=== PATIENT | female | born 1935 | race Caucasian/White ===

== ENCOUNTER → 2023-12-27 14:21 | Outpatient (REF) | payer OTHER, SELFPAY | LOC: RAD 14:21 | PROVIDERS: ATTENDING PHYSICIAN Student in an Organized Health Care Education/Training Program | DX: R05.1 Acute cough (principal) | CPT/HCPCS: 71046 ==

== ENCOUNTER → 2024-01-06 12:19 | Outpatient (REF) | payer OTHER, SELFPAY ==
[2024-01-06 13:25] LABS: ALT (SGPT) 18 U/L (0-35); AST (SGOT) 24 U/L (14-36); Albumin 3.7 g/dl (3.5-5.0); Alkaline Phosphatase 87 U/L (38-126); Blood Urea Nitrogen 16 mg/dl (7-17); Calcium 9.1 mg/dl (8.4-10.2); Carbon Dioxide 28 mmol/L (22-30); Chloride 106 mmol/L (98-107); Glucose 80 mg/dl (70-99); Potassium 4.3 mmol/L (3.5-5.1); Sodium 137 mmol/L (135-145); Total Bilirubin 0.9 mg/dl (0.2-1.3); Total Cholesterol 117 mg/dl (50-199); Total Protein 6.2 g/dl (6.3-8.2); Triglyceride 67 mg/dl (10-149); Very Low Density Lipoprotein 13 mg/dl (0-30); eGFR > 60.00
[2024-01-06 13:35] LABS: % Basophils 0.6 % (0-2); % Eosinophils 2.8 % (0-6); % Immature Granulocytes 0.3 % (0-0.5); % Lymphocytes 19.6 % (20.5-51.1); % Monocytes 11.2 % (1.7-9.3); % Neutrophils 65.5 % (42.2-75.2); Absolute Eosinophils 0.2 10^3/uL (0-0.7); Absolute Lymphocytes 1.4 10^3/uL (1.2-3.4); Absolute Monocytes 0.8 10^3/uL (0.1-0.6); Absolute Neutrophils 4.7 10^3/uL (1.4-6.5); Hematocrit 37.9 % (37.0-47.0); Hemoglobin 12.8 g/dL (12.0-16.0); Mean Corp Hgb Conc. 33.8 g/dL (33.0-37.0); Mean Corpuscular Hgb 32.3 pg (27.0-31.0); Mean Corpuscular Volume 95.7 fL (81.0-99.0); Mean Platelet Volume 10.7 fL (7.4-10.4); Nucleated Red Blood Cells % 0 %; Platelet Count 223 10^3/uL (130-400); Red Blood Cell Count 3.96 10^6/uL (4.20-5.40); Red Cell Dist. Width 13.5 % (11.5-14.5); White Blood Cell Count 7.1 10^3/uL (4.8-10.8)
[2024-01-06 14:04] LABS: HDL Cholesterol 45 mg/dl; LDL Cholesterol, Calculated 59 mg/dl
[2024-01-06 14:33] LABS: Glycohemoglobin (HgbA1c) 6.1 % (4.0-5.6)
[2024-01-06 14:43] LABS: Vitamin D, 25-OH*** 50.9 ng/mL (30-80)
[2024-01-06 14:56] LABS: TSH Reflex To Free T4 0.84 uIU/ml (0.47-4.68)
[2024-01-06 15:16] LABS: Vitamin B12 713 pg/ml (239-931)
== END ==
LOC: OLABMERCHI 12:19
PROVIDERS: ATTENDING PHYSICIAN Student in an Organized Health Care Education/Training Program
DX: Z86.73 Personal history of transient ischemic attack (TIA), and cerebral infarction without residual deficits (principal); R73.03 Prediabetes; M85.80 Other specified disorders of bone density and structure, unspecified site; F01.50 Vascular dementia, unspecified severity, without behavioral disturbance, psychotic disturbance, mood disturbance, and anxiety; I10 Essential (primary) hypertension; G62.9 Polyneuropathy, unspecified
CPT/HCPCS: 36415; 80053; 80061; 82306; 82607; 83036; 84443; 85025

== ENCOUNTER → 2024-06-29 10:40 | Outpatient (REF) | payer OTHER, SELFPAY ==
[2024-06-29 11:20] LABS: % Basophils 1.2 % (0-2); % Eosinophils 2.3 % (0-6); % Immature Granulocytes 0.2 % (0-0.5); % Lymphocytes 33.1 % (20.5-51.1); % Monocytes 8.8 % (1.7-9.3); % Neutrophils 54.4 % (42.2-75.2); Absolute Basophils 0.1 10^3/uL (0-0.2); Absolute Eosinophils 0.1 10^3/uL (0-0.7); Absolute Monocytes 0.5 10^3/uL (0.1-0.6); Absolute Neutrophils 3.3 10^3/uL (1.4-6.5); Hematocrit 36.5 % (37.0-47.0); Hemoglobin 12.7 g/dL (12.0-16.0); Mean Corp Hgb Conc. 34.8 g/dL (33.0-37.0); Mean Corpuscular Hgb 32.9 pg (27.0-31.0); Mean Corpuscular Volume 94.6 fL (81.0-99.0); Mean Platelet Volume 10.9 fL (7.4-10.4); Nucleated Red Blood Cells % 0 %; Platelet Count 195 10^3/uL (130-400); Red Blood Cell Count 3.86 10^6/uL (4.20-5.40); Red Cell Dist. Width 13.2 % (11.5-14.5)
[2024-06-29 11:38] LABS: ALT (SGPT) 21 U/L (0-35); AST (SGOT) 27 U/L (14-36); Albumin 3.7 g/dl (3.5-5.0); Alkaline Phosphatase 68 U/L (38-126); Blood Urea Nitrogen 20 mg/dl (7-17); Calcium 9.3 mg/dl (8.4-10.2); Carbon Dioxide 25 mmol/L (22-30); Chloride 109 mmol/L (98-107); Glucose 95 mg/dl (70-99); HDL Cholesterol 37 mg/dl; LDL Cholesterol, Calculated 78 mg/dl; Potassium 4.3 mmol/L (3.5-5.1); Sodium 143 mmol/L (135-145); Total Bilirubin 0.6 mg/dl (0.2-1.3); Total Cholesterol 133 mg/dl (50-199); Total Protein 6.2 g/dl (6.3-8.2); Triglyceride 91 mg/dl (10-149); Very Low Density Lipoprotein 18 mg/dl (0-30); eGFR 54.53
[2024-06-29 11:54] LABS: Free T4 0.88 ng/dl (0.78-2.19)
[2024-06-29 12:06] LABS: Glycohemoglobin (HgbA1c) 5.7 % (4.0-5.6)
[2024-06-29 12:08] LABS: TSH 2.21 uIU/ml (0.47-4.68)
[2024-06-29 12:44] LABS: Folate 15.6 ng/ml (2.76-20); Vitamin B12 993 pg/ml (239-931)
== END ==
LOC: OLABMERCHI 10:40
PROVIDERS: ATTENDING PHYSICIAN Family Medicine
DX: R73.03 Prediabetes (principal); Z86.73 Personal history of transient ischemic attack (TIA), and cerebral infarction without residual deficits; I10 Essential (primary) hypertension; G62.9 Polyneuropathy, unspecified; Z79.899 Other long term (current) drug therapy
CPT/HCPCS: 36415; 80053; 80061; 82607; 82746; 83036; 84439; 84443; 85025

== ENCOUNTER 2024-11-30 17:07 | Emergency (ER) | payer OTHER, SELFPAY ==
[2024-11-30 17:28] VITALS: BP 175/89
[2024-11-30 17:52] LABS: % Basophils 0.9 % (0-2); % Eosinophils 3.1 % (0-6); % Immature Granulocytes 0.1 % (0-0.5); % Lymphocytes 27.4 % (20.5-51.1); % Monocytes 9.4 % (1.7-9.3); % Neutrophils 59.1 % (42.2-75.2); Absolute Basophils 0.1 10^3/uL (0-0.2); Absolute Eosinophils 0.2 10^3/uL (0-0.7); Absolute Lymphocytes 1.9 10^3/uL (1.2-3.4); Absolute Monocytes 0.7 10^3/uL (0.1-0.6); Absolute Neutrophils 4.2 10^3/uL (1.4-6.5); Hematocrit 42.1 % (37.0-47.0); Hemoglobin 14.2 g/dL (12.0-16.0); Mean Corp Hgb Conc. 33.7 g/dL (33.0-37.0); Mean Corpuscular Hgb 32.2 pg (27.0-31.0); Mean Corpuscular Volume 95.5 fL (81.0-99.0); Mean Platelet Volume 10.1 fL (7.4-10.4); Nucleated Red Blood Cells % 0 %; Platelet Count 203 10^3/uL (130-400); Red Blood Cell Count 4.41 10^6/uL (4.20-5.40); Red Cell Dist. Width 13.4 % (11.5-14.5)
[2024-11-30 18:07] LABS: ALT (SGPT) 23 U/L (0-35); AST (SGOT) 30 U/L (14-36); Alkaline Phosphatase 95 U/L (38-126); Blood Urea Nitrogen 21 mg/dl (7-17); Calcium 9.8 mg/dl (8.4-10.2); Carbon Dioxide 27 mmol/L (22-30); Chloride 103 mmol/L (98-107); Glucose 101 mg/dl (70-99); Potassium 4.9 mmol/L (3.5-5.1); Sodium 141 mmol/L (135-145); Total Bilirubin 0.8 mg/dl (0.2-1.3); Total Protein 7.8 g/dl (6.3-8.2); eGFR > 60.00
[2024-11-30 18:18] LABS: Troponin I < 0.012 ng/ml
== END 2024-11-30 21:32 ==
LOC: EMR 17:07
PROVIDERS: Emergency Medicine; FAMILY PHYSICIAN Family Medicine
DX: R07.89 Other chest pain (principal); R00.0 Tachycardia, unspecified
CPT/HCPCS: 80053; 84484; 85025; 93005

== ENCOUNTER → 2024-12-21 10:02 | Outpatient (REF) | payer OTHER, SELFPAY ==
[2024-12-21 11:37] LABS: % Eosinophils 2.9 % (0-6); % Immature Granulocytes 0.2 % (0-0.5); % Lymphocytes 33.7 % (20.5-51.1); % Monocytes 8.9 % (1.7-9.3); % Neutrophils 53.3 % (42.2-75.2); Absolute Basophils 0.1 10^3/uL (0-0.2); Absolute Eosinophils 0.2 10^3/uL (0-0.7); Absolute Lymphocytes 2.1 10^3/uL (1.2-3.4); Absolute Monocytes 0.6 10^3/uL (0.1-0.6); Absolute Neutrophils 3.4 10^3/uL (1.4-6.5); Hematocrit 39.5 % (37.0-47.0); Hemoglobin 13.4 g/dL (12.0-16.0); Mean Corp Hgb Conc. 33.9 g/dL (33.0-37.0); Mean Corpuscular Hgb 32.4 pg (27.0-31.0); Mean Corpuscular Volume 95.6 fL (81.0-99.0); Mean Platelet Volume 10.7 fL (7.4-10.4); Nucleated Red Blood Cells % 0 %; Platelet Count 195 10^3/uL (130-400); Red Blood Cell Count 4.13 10^6/uL (4.20-5.40); Red Cell Dist. Width 13.4 % (11.5-14.5); White Blood Cell Count 6.3 10^3/uL (4.8-10.8)
[2024-12-21 11:52] LABS: ALT (SGPT) 17 U/L (0-35); AST (SGOT) 26 U/L (14-36); Albumin 3.9 g/dl (3.5-5.0); Alkaline Phosphatase 86 U/L (38-126); Blood Urea Nitrogen 21 mg/dl (7-17); Calcium 9.2 mg/dl (8.4-10.2); Carbon Dioxide 28 mmol/L (22-30); Chloride 108 mmol/L (98-107); Glucose 87 mg/dl (70-99); Potassium 4.3 mmol/L (3.5-5.1); Sodium 143 mmol/L (135-145); Total Bilirubin 0.9 mg/dl (0.2-1.3); Total Protein 6.5 g/dl (6.3-8.2); eGFR 54.19
[2024-12-21 12:06] LABS: Free T4 0.98 ng/dl (0.78-2.19); Vitamin D, 25-OH*** 49.4 ng/mL (30-80)
[2024-12-21 12:13] LABS: Glycohemoglobin (HgbA1c) 5.5 % (4.0-5.6)
[2024-12-21 12:19] LABS: TSH 2.28 uIU/ml (0.47-4.68)
[2024-12-21 12:55] LABS: Folate 17.3 ng/ml (2.76-20); Vitamin B12 > 1000 pg/ml (239-931)
== END ==
LOC: OLABMERCHI 10:02
PROVIDERS: ATTENDING PHYSICIAN Family Medicine
DX: I10 Essential (primary) hypertension (principal); Z86.73 Personal history of transient ischemic attack (TIA), and cerebral infarction without residual deficits; E11.9 Type 2 diabetes mellitus without complications; Z79.01 Long term (current) use of anticoagulants; G62.81 Critical illness polyneuropathy
CPT/HCPCS: 36415; 80053; 82306; 82607; 82746; 83036; 84439; 84443; 85025

== ENCOUNTER → 2025-01-04 11:34 | Outpatient (REF) | payer OTHER, SELFPAY ==
[2025-01-04 13:57] LABS: Folate 14.9 ng/ml (2.76-20); Vitamin B12 961 pg/ml (239-931)
== END ==
LOC: OLABMERCHI 11:34
PROVIDERS: ATTENDING PHYSICIAN Family Medicine
DX: R41.89 Other symptoms and signs involving cognitive functions and awareness (principal)
CPT/HCPCS: 36415; 82607; 82746

== ENCOUNTER 2025-07-04 14:16 | Emergency (ER) | payer OTHER, SELFPAY ==
[2025-07-04 14:21] VITALS: BP 184/79
[2025-07-04 14:47] LABS: Hematocrit 43.5 % (37.0-47.0); Hemoglobin 14.5 g/dL (12.0-16.0); Mean Corp Hgb Conc. 33.3 g/dL (33.0-37.0); Mean Corpuscular Volume 97.3 fL (81.0-99.0); Nucleated Red Blood Cells % 0 %; Platelet Count 204 10^3/uL (130-400); Red Cell Dist. Width 13.1 % (11.5-14.5)
[2025-07-04 15:08] LABS: ALT (SGPT) 21 U/L (0-35); AST (SGOT) 28 U/L (14-36); Albumin 4.5 g/dl (3.5-5.0); Alkaline Phosphatase 85 U/L (38-126); Blood Urea Nitrogen 17 mg/dl (7-17); Calcium 9.6 mg/dl (8.4-10.2); Carbon Dioxide 28 mmol/L (22-30); Chloride 105 mmol/L (98-107); Glucose 130 mg/dl (70-99); Potassium 4.5 mmol/L (3.5-5.1); Sodium 141 mmol/L (135-145); Total Protein 7.4 g/dl (6.3-8.2); eGFR > 60.00
[2025-07-04 16:02] VITALS: BP 190/70
[2025-07-04 17:20] VITALS: BP 167/115
[2025-07-04 17:26] LABS: Urine Character Clear (Clear)
[2025-07-04 17:39] LABS: Urine Squamous Cell 16-20 /LPF (Few)
[2025-07-04 17:40] LABS: Urine Red Blood Cell 0-2 /HPF (0-2)
--- NOTE | 2025-07-04 19:10 | ED.GENMED ---
History of Present Illness
General
Chief Complaint: Weakness
Time Seen by Provider: 07/04/25 16:06
History of Present Illness
History of Present Illness:
89-year-old female with history of prior CVA, hypertension, hyperlipidemia, dementia presenting to the emergency department for concern of change in mental status and weakness. Patient arrives from [facility]. Patient herself
denies any feelings of confusion. Reports that she told the staff that she felt dizzy this morning. Reports that the dizziness has resolved. Denies present chest pain, difficulty breathing, abdominal pain, weakness, numbness, urinary complaints.
Denies additional acute medical complaints
Past History
Past History
ED Past Medical History: Arrthythmia, CVA, GERD, HTN, Hypercholesterolemia, Psychiatric (Depression) and Other (AV malformation, UTI, PE, Constipation)
ED Past Surgical History: Gynecological (Hysterectomy)
Social History
Tobacco: Non-smoker
Alcohol: Occasional
Drug: None
Personal:
Living: alone ([facility])
Employment: Retired
Family History
Family History: Other (Noncontributory)
Phy Exam
Physical Exam
Physical Exam:
General: Well-appearing, no clinical signs of dehydration, nontoxic and in no acute distress
HEENT: protecting airway
Neck: appears supple
CV: Normal heart rate, regular rhythm
Resp: No accessory muscle use, no increased work of breathing, lungs clear to auscultation bilaterally
Abd: Soft and non-distended, no tenderness to palpation
Extremities: No deformities, no swelling
Neuro: alert, no focal neurologic deficit
: deferred
Rectal: deferred
Psych: Normal affect
Skin: Intact
Course
Orders/Labs/Results
Orders:
Orders
07/04/25 14:32
Complete Blood Count/With Diff Urgent
Comprehensive Metabolic Panel Urgent
07/04/25 17:08
Urinalysis Reflex To Culture Urgent
Date Specimen was Collected: 07/04/25
Time Specimen was Collected: 17:05
Urine Microscopic Reflex Cult Urgent
Urine Culture Urgent
ELLEN Source: U
Specimen Description:
Date Specimen was Collected: 07/04/25
Time Specimen was Collected: 17:05
07/04/25 17:35
CT Head W/o Iv Contrast Urgent
Comment:
Reason For Exam: dizziness
Abnormal Lab Results
07/04/25 07/04/25
14:32 17:08
MCH 32.4 H pg
(27.0-31.0)
Glucose 130 H mg/dl
(70-99)
Ur Occult Blood Reflex 1+ A
(Negative)
Leukocyte Esterase Rfl 2+ A
(Negative)
Urine Bacteria (Reflex) Few A
(Negative)
07/04/25 14:32
07/04/25 14:32
Vital Signs
Initial and Last Documented VS:
Initial Vital Signs
Temp Pulse Resp BP Pulse Ox
97.7 F 55 16 184/79 95
07/04/25 14:21 07/04/25 14:21 07/04/25 14:21 07/04/25 14:21 07/04/25 14:21
Last Documented Vital Signs
Temp Pulse Resp BP Pulse Ox
97.7 F 52 16 190/70 94
07/04/25 14:21 07/04/25 16:45 07/04/25 16:45 07/04/25 16:02 07/04/25 16:45
MDM/Problems Addressed
MDM/Problems Addressed:
89-year-old female with history of dementia, hypertension, hyperlipidemia, CVA presenting for concern of confusion from emergency room nursing facility. Vital signs on arrival significant for high blood pressure.
On exam, patient resting comfortably, no acute distress or discomfort. She is presently awake, alert, oriented. She denies any concern for confusion. She does note that she did have some dizziness prior to arrival which has since resolved. She
otherwise denies any acute medical complaints. Nursing facility called. No helpful contributing information. Will screen with laboratory analysis, CT brain imaging given history of stroke, urinalysis.
19:20 - Patient's labs are unremarkable. No sign of urine infection. CT brain without acute intracranial abnormality. Patient remains stable, asymptomatic. Blood pressure does remain elevated, however patient medication regimen, appears to be
due for medications tonight. Without present concern for hypertensive urgency or emergency. Feel stable for discharge. Will provide transportation back to nursing facility. Return precautions discussed and patient verbalized understanding
*Pulse Oximetry
SaO2: 94
Oxygen Mode of Delivery: Room air
Patient hypoxic: no
*EKG
Interpreted by ED Provider?: Yes
EKG Intrepretation Date: 07/04/25
EKG Intrepretation Time: 19:13
Interpretation: normal
Heart Rate: 55
Rate: bradycardiac
Rhythm: sinus
Adel: normal axis
Interval: normal interval
QRS Pattern: normal QRS
Ischemia: non-specific ST changes
*Critical Care Note
Total Time (30-74mins, 75-104mins- exclusive of procedures): Not Applicable
ED Attending Note
-
Portions of this chart may have been created with voice recognition software.� Occasional wrong word or��sound alike� substitutions may have occurred due to the inherent limitations of voice recognition software.
Discharge Plan
Departure
Prescriptions:
No Action
Eliquis 2.5 MG tablet
2.5 mg PO BID
cyanocobalamin (vitamin B-12) 1,000 MCG tablet
1,000 mcg PO DAILY
cholecalciferol (vitamin D3) 1,000 UNITS tablet
1,000 units PO DAILY
lisinopril 20 mg Tablet
20 mg PO BID
sennosides [senna] 8.6 mg Tablet
8.6 mg PO DAILY
Patient Comments:
2 tablets at night as well
atorvastatin 10 mg Tablet
10 mg PO HS
donepezil 10 mg Tablet
10 mg PO HS
melatonin 3 mg Tablet
3 mg PO HS PRN (Reason: sleep)
docusate sodium 100 mg Capsule
100 mg PO DAILY
gabapentin 300 mg Capsule
300 mg PO TID
estradiol 0.01 % (0.1 mg/gram) Cream
1 g VAGINAL DAILY
azelastine [Astepro] 205.5 mcg (0.15 %) [place],Non-Aerosol
1 spray INTRANASAL BID
methylprednisolone [Methylpred DP] 4 mg tablets,dose pack
See Rx Instructions .ROUTE .COMPLEX Qty: 21 0RF
Rx Instructions:
orally per package directions
albuterol sulfate [ProAir HFA] 90 mcg/actuation HFA aerosol inhaler
1 puff inhalation Q4HPRN PRN (Reason: shortness of breath) Qty: 6.7 0RF
Referrals:
UNKNOWN - PT DOES,NOT KNOW [Family Provider]
Interventions
Interventions:
*Risk Screen - Suicide Last Done: 07/04/25 14:23
*General Assessment Last Done: 07/04/25 14:21
*Neglect/Abuse Screening Last Done: 07/04/25 14:21
*ED- Fall Risk Assessment Last Done: 07/04/25 16:33
*ED COVID-19 Vaccine History Last Done: 07/04/25 16:33
*ED Influenza Vaccine History Last Done: 07/04/25 16:33
ED- Cardiac Assessment Last Done: 07/04/25 16:20
ED- Neurological Assessment Last Done: 07/04/25 16:20
ED- Pulmonary Assessment Last Done: 07/04/25 16:20
Discharge Date and Time
Print Language: LATVIAN
== END 2025-07-04 20:42 | disposition home or self-care (01) ==
LOC: EMR 14:16
PROVIDERS: EMERGENCY PHYSICIAN Student in an Organized Health Care Education/Training Program
DX: R53.1 Weakness (principal); E78.00 Pure hypercholesterolemia, unspecified; F03.90 Unspecified dementia, unspecified severity, without behavioral disturbance, psychotic disturbance, mood disturbance, and anxiety; I10 Essential (primary) hypertension; Z86.73 Personal history of transient ischemic attack (TIA), and cerebral infarction without residual deficits; Z90.710 Acquired absence of both cervix and uterus
CPT/HCPCS: 99284; 70450; 80053; 81003; 81015; 85025; 87077; 87086

== ENCOUNTER → 2025-07-18 11:13 | Outpatient (REF) | payer OTHER, SELFPAY | LOC: RCS 11:13 | PROVIDERS: ATTENDING PHYSICIAN Nurse Practitioner Gerontology; FAMILY PHYSICIAN Family Medicine | DX: R42 Dizziness and giddiness (principal) | CPT/HCPCS: 93225; 93226 ==

== ENCOUNTER 2025-08-24 22:06 | Emergency (ER) | payer OTHER, SELFPAY ==
[2025-08-24 22:08] VITALS: BP 196/82
[2025-08-24 22:09] VITALS: BP 196/82
[2025-08-24 22:17] VITALS: BMI 26.7
[2025-08-24 22:21] VITALS: BP 202/85
[2025-08-24 22:36] LABS: Hematocrit 40.4 % (37.0-47.0); Hemoglobin 13.9 g/dL (12.0-16.0); Mean Corp Hgb Conc. 34.4 g/dL (33.0-37.0); Mean Corpuscular Volume 94.6 fL (81.0-99.0); Nucleated Red Blood Cells % 0 %; Platelet Count 188 10^3/uL (130-400); Red Cell Dist. Width 13.2 % (11.5-14.5)
[2025-08-24 22:50] LABS: ALT (SGPT) 18 U/L (0-35); AST (SGOT) 28 U/L (14-36); Albumin 4.4 g/dl (3.5-5.0); Alkaline Phosphatase 91 U/L (38-126); Blood Urea Nitrogen 21 mg/dl (7-17); Calcium 9.1 mg/dl (8.4-10.2); Carbon Dioxide 29 mmol/L (22-30); Chloride 104 mmol/L (98-107); Estimated Creatinine Clearance 45 ml/min; Glucose 99 mg/dl (70-99); Potassium 4.1 mmol/L (3.5-5.1); Sodium 138 mmol/L (135-145); Total Protein 7.4 g/dl (6.3-8.2); eGFR > 60.00
[2025-08-24 23:00] VITALS: BP 173/59
--- NOTE | 2025-08-25 00:15 | ED.MUSCINJ ---
HPI-Injury
General
Chief Complaint: Fall
Source: patient
Exam Limitations: none
Time Seen by Provider: 08/24/25 22:12
Nursing documentation reviewed up to this point in time: agreed with
History of Present Illness-Injury
Is this injury a work related problem?: No
Is pt an associate of [facility]?: No
Initial Injury comments:
Patient to the emergency department from [facility] after a fall. Patient states that she was walking quickly to her bathroom. She states she was wearing socks and slid on the bathroom floor. She reports hitting the left side of her forehead on
the floor. No LOC. She has a large hematoma to left forehead. She also complains of pain to left index finger and left dorsal hand. Injury occurred just prior to arrival. She was brought to the emergency department via EMS
Past History
Past History
ED Past Medical History: Arrthythmia, CVA, GERD, HTN, Hypercholesterolemia, Psychiatric (Depression) and Other (AV malformation, UTI, PE, Constipation)
ED Past Surgical History: Gynecological (Hysterectomy)
Social History
Tobacco: Non-smoker
Alcohol: Occasional
Drug: None
Personal:
Living: alone ([facility])
Employment: Retired
Family History
Family History: Other (Noncontributory)
Review of Systems
Review of Systems
Allergies reviewed?: Yes
All Other Systems: ROS reviewed and negative except as documented in HPI and ROS
Constitutional: Reports no symptoms
EENT: Reports no symptoms
Respiratory: Reports no symptoms
Cardiac: Reports no symptoms
ABD/GI: Reports no symptoms
: Reports no symptoms
Musculoskeletal: Reports joint pain (Pain to left dorsal hand and left index finger)
Skin: Reports other (Hematoma to left forehead)
Neurological: Reports no symptoms
Psychiatric: Reports no symptoms
Musculoskeletal Injury Exam
Musculoskeletal Injury Exam
Left Second Finger:
Pain with Movement?: Moderate
Tender to palpation?: Moderate
Soft tissue swelling?: Moderate
External deformity and angulation?: None
Joint effusion?: None
Contusion?: Moderate
Hematoma-local bleeding into tissue?: Moderate
Strain- Sprain- Tear (Connective tissue injury)?: Moderate
Crepitus with movement?: No
Joint instability?: No
Malalignment/deformity?: No
Range of motion: Full
Distal skin color and temperature: normal-warm & good color
Capillary Refill: normal
Normal distal neurovascular exam?: Yes
Left Dorsal Hand:
Pain with Movement?: Mild
Tender to palpation?: Mild
Soft tissue swelling?: Mild
External deformity and angulation?: None
Joint effusion?: None
Contusion?: Moderate
Hematoma-local bleeding into tissue?: Moderate
Strain- Sprain- Tear (Connective tissue injury)?: Mild
Crepitus with movement?: No
Joint instability?: No
Malalignment/deformity?: No
Range of motion: Full
Distal skin color and temperature: normal-warm & good color
Capillary Refill: normal
Normal distal neurovascular exam?: Yes
Phy Exam
General Physical Exam
General Presentation: well appearing and mild distress
General age: appears stated age
General Skin: warm and dry
General Habitus: normal
General Mental: alert
Neurological Exam
Neurological Exam: alert, oriented x3, CN II-XII intact, no motor deficits, no sensory deficits and speech normal
Musculoskeletal Exam
Musculoskeletal Exam: full ROM and neuro vasc intact
Skin Exam
Skin Exam: normal color, warm/dry and no rash
Psychiatric Exam
Psychiatric Exam: normal mood/affect
Injury Course
Orders/Labs/Results
Orders:
Orders
08/24/25 22:13
CT Cervical Spine W/o Iv Contr Urgent
Comment:
Reason For Exam: fall with headstrike on thinners
CT Head W/o Iv Contrast Urgent
Comment:
Reason For Exam: fall with headstrike on thinners
08/24/25 22:27
Complete Blood Count/With Diff Urgent
Comprehensive Metabolic Panel Urgent
08/24/25 22:37
Urinalysis Reflex To Culture Urgent
Date Specimen was Collected: 08/25/25
Time Specimen was Collected: 00:23
08/24/25 23:13
Hand, Left 3 View [CR Hand - Left Min 3 Views] Urgent
Comment:
Reason For Exam: trauma
08/25/25 00:23
Urine Microscopic Reflex Cult Urgent
Urine Culture Urgent
ELLEN Source: U
Specimen Description:
Date Specimen was Collected: 08/25/25
Time Specimen was Collected: 00:23
Abnormal Lab Results
08/24/25 08/25/25
22:27 00:23
MCH 32.6 H pg
(27.0-31.0)
BUN 21 H mg/dl
(7-17)
Ur Occult Blood Reflex 2+ A
(Negative)
Leukocyte Esterase Rfl 1+ A
(Negative)
Urine RBC 3-6 A /HPF
(0-2)
Urine Bacteria (Reflex) Many A
(Negative)
08/24/25 22:27
08/24/25 22:27
*Radiology
Radiology exam reviewed: radiology read reviewed
*Pulse Oximetry
SaO2: 94
Oxygen Mode of Delivery: Room air
Patient hypoxic: no
*Critical Care Note
Total Time (30-74mins, 75-104mins- exclusive of procedures): Not Applicable
Update Note
Update Note:
Patient to the emergency department after a slip and fall at home tonight. She states she slid on her bathroom floor while wearing socks. She hit the left side of her forehead on the floor. No LOC however she sustained a large hematoma to the
left side of her forehead. On exam she is awake and alert cooperative. Vital signs are stable, she remains afebrile. CT of head and neck report reviewed. No acute findings noted. She sustained swelling and bruising to her left index finger from
the dorsum of her left hand. X-ray reviewed by me no evidence of fracture noted. She has full nonpainful ROM to her upper and lower extremities. Labs reviewed no concerning findings noted. Will discharge home, close follow-up with PCP.
ED Attending Note
-
Portions of this chart may have been created with voice recognition software.� Occasional wrong word or��sound alike� substitutions may have occurred due to the inherent limitations of voice recognition software.
Discharge Plan
Departure
Patient Disposition: Home (Routine Discharge)
Date of Disposition: 08/25/25
Time of Disposition: 01:12
Patient with high blood pressure during this ER visit?: No
Condition: Good
Covid-19: Not Applicable
Discharge Problem:
Head injury
Instructions: Head Injury in Adults (DC), Contusion (DC), Preventing falls in adults
Prescriptions:
No Action
Eliquis 2.5 MG tablet
2.5 mg PO BID
cyanocobalamin (vitamin B-12) 1,000 MCG tablet
1,000 mcg PO DAILY
cholecalciferol (vitamin D3) 1,000 UNITS tablet
1,000 units PO DAILY
lisinopril 20 mg Tablet
20 mg PO BID
sennosides [senna] 8.6 mg Tablet
8.6 mg PO DAILY
Patient Comments:
2 tablets at night as well
atorvastatin 10 mg Tablet
10 mg PO HS
donepezil 10 mg Tablet
10 mg PO HS
melatonin 3 mg Tablet
3 mg PO HS PRN (Reason: sleep)
docusate sodium 100 mg Capsule
100 mg PO DAILY
gabapentin 300 mg Capsule
300 mg PO TID
estradiol 0.01 % (0.1 mg/gram) Cream
1 g VAGINAL DAILY
azelastine [Astepro] 205.5 mcg (0.15 %) [place],Non-Aerosol
1 spray INTRANASAL BID
methylprednisolone [Methylpred DP] 4 mg tablets,dose pack
See Rx Instructions .ROUTE .COMPLEX Qty: 21 0RF
Rx Instructions:
orally per package directions
albuterol sulfate [ProAir HFA] 90 mcg/actuation HFA aerosol inhaler
1 puff inhalation Q4HPRN PRN (Reason: shortness of breath) Qty: 6.7 0RF
Referrals:
María Elena Gooden MD [Family Provider, Family Practice] - Follow up in 2-3 days
Interventions
Interventions:
*Risk Screen - Suicide Last Done: 08/24/25 22:15
*General Assessment Last Done: 08/24/25 22:15
*Neglect/Abuse Screening Last Done: 08/24/25 22:15
*ED COVID-19 Vaccine History Last Done: 08/24/25 22:15
*ED Influenza Vaccine History Last Done: 08/24/25 22:15
[facility] Fall Risk Assessment Tool Last Done: 08/24/25 22:16
ED-Musculoskeletal Assessment Last Done: 08/24/25 22:17
ED- Neurological Assessment Last Done: 08/24/25 22:17
ED-Skin Assessment Last Done: 08/24/25 22:17
Discharge Date and Time
Print Language: [id number]
[2025-08-25 00:20] VITALS: BP 173/88
[2025-08-25 00:30] LABS: Urine Character Clear (Clear)
[2025-08-25 01:10] LABS: Urine Urothelial Cell 0-2 /LPF (FEW)
== END 2025-08-25 04:21 | disposition home or self-care (01) ==
LOC: EMR 22:06
PROVIDERS: Nurse Practitioner; EMERGENCY PHYSICIAN Student in an Organized Health Care Education/Training Program; FAMILY PHYSICIAN Family Medicine
DX: S00.83XA Contusion of other part of head, initial encounter (principal); W19.XXXA Unspecified fall, initial encounter; Y93.01 Activity, walking, marching and hiking; K21.9 Gastro-esophageal reflux disease without esophagitis; I10 Essential (primary) hypertension; E78.00 Pure hypercholesterolemia, unspecified; Q27.30 Arteriovenous malformation, site unspecified; Z86.73 Personal history of transient ischemic attack (TIA), and cerebral infarction without residual deficits; Z87.440 Personal history of urinary (tract) infections; Z90.710 Acquired absence of both cervix and uterus
CPT/HCPCS: 99284; 70450; 72125; 73130; 80053; 81003; 81015; 85025; 87077; 87086; 87186

== ENCOUNTER 2025-08-28 20:51 | Emergency (ER) | payer OTHER, SELFPAY ==
[2025-08-28 20:53] VITALS: BP 185/72
[2025-08-28 21:00] VITALS: BP 181/75
--- NOTE | 2025-08-28 21:09 | ED.GENMED ---
History of Present Illness
General
Chief Complaint: Fall
Source: patient
Exam Limitations: none
Time Seen by Provider: 08/28/25 21:06
History of Present Illness
History of Present Illness:
See MDM
Past History
Past History
ED Past Medical History: Arrthythmia, CVA, GERD, HTN, Hypercholesterolemia, Psychiatric (Depression) and Other (AV malformation, UTI, PE, Constipation)
ED Past Surgical History: Gynecological (Hysterectomy)
Social History
Tobacco: Non-smoker
Alcohol: Occasional
Drug: None
Personal:
Living: alone ([facility])
Employment: Retired
Family History
Family History: Other (Noncontributory)
Phy Exam
Physical Exam
Physical Exam:
See MDM
Course
Orders/Labs/Results
Orders:
Orders
08/28/25 21:01
CT Head W/o Iv Contrast Urgent
Comment:
Reason For Exam: fall/headstrike
Cervical Spine wo Contrast CT [CT Cervical Spine W/o Iv Contr] Urgent
Comment:
Reason For Exam: fall/headstrike
08/28/25 21:08
Elbow, Left [CR Elbow - Left Min 3 Views ] Urgent
Comment:
Reason For Exam: fall, left elbow pain
Shoulder, Left, Trauma CR [CR Shoulder, Trauma - Left] Urgent
Comment:
Reason For Exam: fall, left shoulder pain
08/28/25 22:05
Urinalysis Reflex To Culture Urgent
Date Specimen was Collected: 08/28/25
Time Specimen was Collected: 22:00
Urine Microscopic Reflex Cult Urgent
Urine Culture Urgent
ELLEN Source: U
Specimen Description:
Date Specimen was Collected: 08/28/25
Time Specimen was Collected: 22:00
Abnormal Lab Results
08/28/25
22:05
Ur Occult Blood Reflex 2+ A
(Negative)
Leukocyte Esterase Rfl 1+ A
(Negative)
Urine RBC 3-6 A /HPF
(0-2)
Urine Bacteria (Reflex) Few A
(Negative)
Vital Signs
Initial and Last Documented VS:
Initial Vital Signs
Temp Pulse Resp BP Pulse Ox
97.5 F 64 18 185/72 95
08/28/25 20:53 08/28/25 20:53 08/28/25 20:53 08/28/25 20:53 08/28/25 20:53
Last Documented Vital Signs
Temp Pulse Resp BP Pulse Ox
97.5 F 60 17 148/90 95
08/28/25 20:53 08/28/25 22:11 08/28/25 22:11 08/28/25 22:00 08/28/25 22:11
MDM/Problems Addressed
Differential Diagnosis Includes:
CHIEF COMPLAINT(S)
Fall with subsequent left shoulder and elbow pain.
HISTORY OF PRESENT ILLNESS
The patient is an 89-year-old female who presented to the emergency department after experiencing a fall. The patient has noticed bruising on the left side that appears to be healing, which first appeared approximately two weeks ago. Additionally,
there is a small skin tear on the left elbow. The patient reports pain in the left shoulder and elbow but denies any hip pain. The patient states she does not experience nausea. No mention was made of medical history or current medications. Patient
states she had a recent fall a week or so ago in a similar nature.
PHYSICAL EXAM
General: Alert, no acute distress.
Skin: Warm, dry. Skin tear to left elbow. Old bruising noted to left forehead
Head: Normocephalic, atraumatic
Neck: Appears supple, trachea midline. No significant tenderness noted
Eyes, Ears, Nose, Mouth, and Throat: Moist mucous membranes
Cardiovascular: No signs of cyanosis
Respiratory: Respirations are non-labored.
Abdomen: Non-distended
Musculoskeletal: No deformities. Mild tenderness to left lateral elbow but distal extremity neurovascularly intact
Neurological: No focal neurological deficit observed.
Psychiatric: Cooperative, appropriate mood and affect.
PLAN
- Order a CT scan to evaluate any injury due to fall.
- Perform X-rays of the left shoulder and elbow to assess for fractures.
- Assess and update tetanus vaccination status.
DIFFERENTIAL DIAGNOSIS
The Differential Diagnosis includes, in no particular order and is not limited to:
- Contusion
- Soft tissue injury
- Fracture of the shoulder
- Fracture of the elbow
- Rotator cuff injury
- Tendon injury
- Ligamentous injury
- Joint dislocation
- Hematoma
- Bursitis
SUMMARY OF ENCOUNTER
An 89-year-old female presented with concern after a recent fall causing left shoulder and elbow pain. Physical examination showed a healing bruise on the left side, a skin tear on the left elbow, and tenderness in the left shoulder. CT and X-rays
were ordered to rule out fractures or more serious injuries.
DISPOSITION
Pending results of imaging studies.
MEDICAL DECISION MAKING
-Complexity of Data Reviewed:
Chronic conditions affecting care not discussed.
The Differential Diagnosis includes, in no particular order and is not limited to:
- Contusion
- Soft tissue injury
- Fracture of the shoulder
- Fracture of the elbow
- Rotator cuff injury
- Tendon injury
- Ligamentous injury
- Joint dislocation
- Hematoma
- Bursitis
-Data:
Category 1
- My independent interpretation of radiology considered a CT scan and X-rays for evaluating injury due to a fall.
Category 2
- None discussed.
Category 3
- None discussed.
-Risk:
Consideration of Admission/Observation: Escalation of care including admission/observation was considered given the complexity and risk of the patients presenting complaint, exam findings, and/or their underlying comorbidities. However, ultimately I
feel the patient is safe for outpatient management with close follow-up. Reasoning: Work-up reassuring, does not reveal any acute life/organ-threatening processes, patients symptoms well controlled upon reevaluation, reexamination is reassuring,
vitals are stable, patient agreeable with discharge, reliable for follow-up.
DIAGNOSIS
Fall-related injury (ICD-10: W19)
Pain in left shoulder and elbow (ICD-10: M25.512, M25.521)
SUMMARY OF ENCOUNTER
An 89-year-old female presented to the emergency department following a fall. The patient had evidence of frequent falls, with old bruising noted on her left forehead, and presented with a contusion on her left elbow. She also complained of left
shoulder pain. X-rays of the left shoulder and elbow were performed and were negative for acute fractures. Given the patients age, a CT scan of the head and neck was performed, both of which were negative for acute pathology. As recurring falls are
a concern, a urinalysis was conducted to rule out a urinary tract infection (UTI), which returned negative results.
DISPOSITION
The patient was discharged with outpatient follow-up provided.
ASSESSMENT
The patient is experiencing recurrent falls and was evaluated for potential fracture and neurological concerns, which were ruled out by imaging studies. Her recurrent falls could be multifactorial but did not show acute underlying medical conditions
in this visit.
PLAN
- Patient to follow up with her primary care physician for ongoing management of fall risk and comprehensive evaluation.
- Encourage continued evaluation and management strategies to prevent future falls.
INDEPENDENT REVIEW OF LABS AND INTERPRETATION OF TESTS
- My independent review of X-rays shows no acute fracture in the left shoulder and elbow.
- My independent interpretation of the CT scan indicates no acute pathology in the head and neck.
- My independent review of urinalysis is negative for UTI.
MEDICAL DECISION MAKING
-Complexity of Data Reviewed: Chronic conditions affecting care were not mentioned. Differential Diagnosis includes:
- Contusion
- Soft tissue injury
- Fracture of the shoulder
- Fracture of the elbow
- Rotator cuff injury
- Tendon injury
- Ligamentous injury
- Joint dislocation
- Hematoma
- Bursitis
-Data:
Category 1
- Reviewed negative X-rays of the left shoulder and elbow.
- Reviewed negative CT of the head and neck for acute pathology.
Category 2
- No other sources were required for assessment.
Category 3
- Management was not discussed with additional consultants.
-Risk:
Consideration of Admission/Observation: Escalation of care including admission/observation was considered given the complexity and risk of the patients presenting complaint, but the patient was ultimately deemed safe for outpatient management with
close follow-up. Work-up was reassuring and did not reveal any acute life-threatening processes; patients symptoms were well controlled upon reevaluation; reexamination was reassuring; vitals were stable; patient agreeable with discharge; reliable
for follow-up.
DIAGNOSIS
- Fall-related injury (ICD-10: W19)
- Pain in left shoulder (ICD-10: M25.512)
- Pain in left elbow (ICD-10: M25.521)
*Pulse Oximetry
SaO2: 94
Oxygen Mode of Delivery: Room air
Patient hypoxic: no
*Critical Care Note
Total Time (30-74mins, 75-104mins- exclusive of procedures): Not Applicable
ED Attending Note
-
Portions of this chart may have been created with voice recognition software.� Occasional wrong word or��sound alike� substitutions may have occurred due to the inherent limitations of voice recognition software.
Discharge Plan
Departure
Patient Disposition: Home (Routine Discharge)
Date of Disposition: 08/28/25
Time of Disposition: 22:29
Patient with high blood pressure during this ER visit?: Yes
Discharge Problem:
Contusion of elbow, left
Instructions: BLOOD PRESSURE
Prescriptions:
No Action
Eliquis 2.5 MG tablet
2.5 mg PO BID
cyanocobalamin (vitamin B-12) 1,000 MCG tablet
1,000 mcg PO DAILY
cholecalciferol (vitamin D3) 1,000 UNITS tablet
1,000 units PO DAILY
lisinopril 20 mg Tablet
20 mg PO BID
sennosides [senna] 8.6 mg Tablet
8.6 mg PO DAILY
Patient Comments:
2 tablets at night as well
atorvastatin 10 mg Tablet
10 mg PO HS
donepezil 10 mg Tablet
10 mg PO HS
melatonin 3 mg Tablet
3 mg PO HS PRN (Reason: sleep)
docusate sodium 100 mg Capsule
100 mg PO DAILY
gabapentin 300 mg Capsule
300 mg PO TID
estradiol 0.01 % (0.1 mg/gram) Cream
1 g VAGINAL DAILY
azelastine [Astepro] 205.5 mcg (0.15 %) [place],Non-Aerosol
1 spray INTRANASAL BID
methylprednisolone [Methylpred DP] 4 mg tablets,dose pack
See Rx Instructions .ROUTE .COMPLEX Qty: 21 0RF
Rx Instructions:
orally per package directions
albuterol sulfate [ProAir HFA] 90 mcg/actuation HFA aerosol inhaler
1 puff inhalation Q4HPRN PRN (Reason: shortness of breath) Qty: 6.7 0RF
Referrals:
María Elena Gooden MD [Family Provider, Family Practice]
Activity Restrictions/Additional Instructions:
Please return for any worsening symptoms.
You may return at any time if you have further concerns.
Please follow up with your doctor at the first available appointment, preferably this week.
Thank you for choosing [facility].
Interventions
Interventions:
*Risk Screen - Suicide Last Done: 08/28/25 20:53
*General Assessment Last Done: 08/28/25 20:53
*Neglect/Abuse Screening Last Done: 08/28/25 20:53
*ED COVID-19 Vaccine History Last Done: 08/28/25 20:53
*ED Influenza Vaccine History Last Done: 08/28/25 20:[address]
[facility] Fall Risk Assessment Tool Last Done: 08/28/25 20:51
ED-Musculoskeletal Assessment Last Done: 08/28/25 21:03
ED- Neurological Assessment Last Done: 08/28/25 21:03
ED-Skin Assessment Last Done: 08/28/25 21:03
Discharge Date and Time
Print Language: MALAYSIAN
[2025-08-28 22:00] VITALS: BP 148/90
[2025-08-28 22:12] LABS: Urine Character Clear (Clear)
[2025-08-28 22:20] LABS: Urine Squamous Cell 0-2 /LPF (Few)
[2025-08-28 23:00] VITALS: BP 167/84
== END 2025-08-28 23:30 ==
LOC: EMR 20:51
PROVIDERS: EMERGENCY PHYSICIAN Student in an Organized Health Care Education/Training Program; FAMILY PHYSICIAN Family Medicine
DX: S50.02XA Contusion of left elbow, initial encounter (principal); S09.90XA Unspecified injury of head, initial encounter; M25.512 Pain in left shoulder; W19.XXXA Unspecified fall, initial encounter; R29.6 Repeated falls; E78.00 Pure hypercholesterolemia, unspecified; I10 Essential (primary) hypertension; Z86.73 Personal history of transient ischemic attack (TIA), and cerebral infarction without residual deficits
CPT/HCPCS: 99284; 70450; 72125; 73030; 73080; 81003; 81015; 87086